=== PATIENT | male | born 1975 | race Caucasian/White ===

== ENCOUNTER 2018-10-31 14:26 | Inpatient (IN) ==
[2018-10-31 15:18] LABS: URINE SOURCE CLEAN CATCH
--- NOTE | 2018-10-31 15:23 | EKG Report ---
Test Performed on : 10/31/2018 3:05:38 PM Test Reason : edema Blood Pressure : / mmHG Vent. Rate : 087 BPM Atrial Rate : 087 BPM P-R Int : 150 ms QRS Dur : 088 ms QT Int : 406 ms P-R-T Axes : 066 074 066 degrees QTc Int : 488 ms Normal sinus rhythm. Prolonged QT Abnormal ECG No previous ECGs available Unconfirmed Result
[2018-10-31 15:26] LABS: BASO# 0.04 X1000 (0.0-0.2); BASO% 0.5 % (0.0-0.8); HEMATOCRIT 34.5 % (42.0-52.0); HEMOGLOBIN 11.9 g/dL (14.0-18.0); IMM GRAN# 0.04 X1000 (0.0-0.04); IMM GRAN% 0.5 % (0.0-0.5); LYMPH# 2.02 X1000 (1.2-3.4); LYMPH% 25.3 % (20.5-51.1); MCH 34.6 PG (27-31); MCHC 34.5 g/dL (33-37); MCV 100.3 FL (81-99); MONO# 0.96 X1000 (0.11-0.59); MPV 11.5 FL (7.4-10.4); NEUT# 4.54 X1000 (1.4-6.5); NEUT% 56.7 % (42.2-75.2); PLT 79 X1000 (130-400); RBC 3.44 XMIL (4.7-6.1); RDW 16.8 % (11.5-14.5)
[2018-10-31 15:28] LABS: BILIRUBIN URINE NEGATIVE (NEGATIVE); BLOOD URINE NEGATIVE (NEGATIVE); COLOR YELLOW; GLUCOSE URINE NEGATIVE (NEGATIVE); KETONE URINE NEGATIVE (NEGATIVE); LEUKOCYTES URINE NEGATIVE (NEGATIVE); NITRITE URINE NEGATIVE (NEGATIVE); PH URINE 5.5; PROTEIN URINE NEGATIVE (NEGATIVE); SP GRAVITY URINE 1.021; TURBIDITY URINE CLEAR (CLEAR); UR EPITHELIAL CELLS <10 /HPF (<10); URINE BACTERIA NEGATIVE /HPF; URINE RBC <10 /HPF (<10); URINE WBC <10 /HPF (<10); UROBILINOGEN URINE 2 mg/dL (NORMAL)
--- NOTE | 2018-10-31 15:36 | Diag Imaging Result Doc PS360 ---
EXAM: CHEST-1 VIEW HISTORY: edema TECHNIQUE: Chest single view COMPARISON: None. FINDINGS: Poor inspiratory effort with basilar atelectasis. The heart is not enlarged. The vessels are not distended. There are no infiltrates. Small right pleural effusion. IMPRESSION: Small right effusion. Electronically signed by Derik Knight 10/31/2018 3:33 PM
--- NOTE | 2018-10-31 15:36 | Diag Imaging Result Doc PS360 ---
CT ABDOMEN/PELVIS W/O CONTRAST - 10/31/2018 INDICATION: distension COMPARISON: None FINDINGS: There is a trace right pleural effusion. There is linear atelectasis in the lung bases. There is moderate ascites. There is severe body wall edema. There is extremely advanced cirrhosis with an atrophic, nodular liver. There is splenomegaly. The spleen measures 15.5 x 5.3 cm. No bowel obstruction or free air. No radiodense renal stones. Bones are intact. IMPRESSION: Severe cirrhosis. Splenomegaly. Moderate ascites. Trace right pleural effusion. Severe body wall edema. This exam was performed using automated exposure control, adjustment of mA or kV according to patient size, and/or use of iterative reconstruction technique Electronically signed by Jaison Bradford 10/31/2018 3:33 PM
[2018-10-31 15:44] LABS: AGAP 8; ALB/GLOB RATIO 0.6; ALBUMIN 2.3 g/dL (3.5-5.0); ALKALINE PHOSPHATASE 199 U/L (32-122); BUN 8 mg/dL (8-22); CALCIUM 7.8 mg/dL (8.8-10.2); CHLORIDE 107 mmol/L (98-107); COSMO 278; CREATININE 0.6 mg/dL (0.7-1.2); ESTIMATED GFR > 60; GLUCOSE 108 mg/dL (70-104); GOT 154 U/L (10-34); GPT 60 U/L (10-44); POTASSIUM 3.7 mmol/L (3.5-5.1); SODIUM 140 mmol/L (136-145); TCO2 25 mmol/L (25-35); TOTAL BILIRUBIN 2.66 mg/dL (0.20-1.00); TOTAL PROTEIN 6.1 g/dL (6.3-8.3)
--- NOTE | 2018-10-31 16:18 | PROVIDER DOCUMENTATION ---
HPI-General Adult - General Chief Complaint: Edema Stated Complaint: WORK RELEASE-FLUID Time Seen by Provider: 10/31/18 14:34 Source: patient Allergies/Adverse Reactions: Patient Allergies Allergy/AdvReac Type Severity Reaction Status Date / Time No Known Allergies Allergy Verified 10/31/18 15:14 Home Medications: Home Medication List Medication Instructions Recorded Confirmed Last Taken Type Amoxicillin/Potassium Clav 1 tab PO BID 10/31/18 10/31/18 10/31/18 History [Augmentin 875-125 Tablet] Furosemide [Lasix] 40 mg PO DAILY 10/31/18 10/31/18 10/31/18 History Potassium Chloride 1 tab PO DAILY 10/31/18 10/31/18 10/30/18 History - History of Present Illness -Gen Adult Nature of Presenting Problems: 43 y/o male with swelling to both lower extremities abdomen and scrotum for 1 month now, getting worse and has been on furosemide and k pill. He developed chest pain, sob about 4 days ago and started on Augmentine. Xray done today at one of the [facility] facilities till reveal pneumonia but his respiratory sxs have resolved Location of Pain/Injury: reports: none, other (edema to the lower extremities , scrotum) Pain Radiation: reports: no radiation Onset/Duration: reports: other (occuring over the past 1 month) Timing: reports: still present Context/Activities at Onset: reports: none Modifying Factors: improves with: nothing Associated Symptoms: reports: chest pain (chest pain sob about 4 days now, started on abx) Review of Systems - Adult - REVIEW OF SYSTEMS - ADULT Constitutional: reports: no symptoms reported Eyes: reports: no symptoms reported Ears, Nose, Mouth & Throat: reports: no symptoms reported Cardiovascular: reports: no symptoms reported Respiratory: reports: no symptoms reported Gastrointestinal: reports: other (abdominal distension) Genitourinary: reports: no symptoms reported Musculoskeletal: reports: no symptoms reported, other (leg swelling) Integumentary: reports: no symptoms reported Neurological: reports: no symptoms reported Psychiatric: reports: no symptoms reported Past History - Adult - PAST MEDICAL HISTORY-ADULT Review of Records: reports: Nursing Assessment Review, Medications Reviewed, Social history reviewed & non-contributory. Cardiovascular: reports: denies history Respiratory: reports: denies history (chest pain, sob improved) Gastrointestinal: reports: denies history Genitourinary: reports: denies history Musculoskeletal: reports: denies history Neurological: reports: denies history Psychiatric: reports: denies history Endocrine/Immune: reports: denies history - SOCIAL HISTORY Smoking: cigarettes Substance Use: denies Alcohol Use Frequency: every day (forof long standing duration) Living Situation: care facility ([facility] facility) Physical Exam-General - PHYSICAL EXAM-ADULT Initial Vital Signs Reviewed: Yes - CONSTITUTIONAL General Appearance: appears well, alert, no apparent distress - EYES Eyes: PERRL/EOMI - HEAD, EARS, NOSE, MOUTH & THROAT HENMT: normocephalic/atraumatic - NECK Neck: non-tender, full range of motion, supple - RESPIRATORY Respiratory: chest non-tender, lungs clear, no respiratory distress - CARDIOVASCULAR Cardiovascular: regular rate, rhythm, other (b/l leg edema) - GASTROINTESTINAL (ABDOMEN) Abdominal Exam: non tender, distended - MUSCULOSKELETAL Extremity: pedal edema - SKIN Integumentary: normal color - PSYCHIATRIC Psych/Mental Status: normal mood/affect, normal thought content, oriented x 3 Progress - PLAN OF CARE/RESULTS Progress/Plan/Lab Results: Vital Signs - 8 hr 10/31/18 14:28 Temperature 98.1 F Pulse Rate 93 H Respiratory Rate 20 Blood Pressure 131/89 O2 Sat by Pulse Oximetry 100 Laboratory Results - last 24 hr 10/31/18 10/31/18 10/31/18 14:55 15:00 15:00 WBC 8.00 RBC 3.44 L Hgb 11.9 L Hct 34.5 L MCV 100.3 H MCH 34.6 H MCHC 34.5 RDW Std Deviation 16.8 H Plt Count 79 L MPV 11.5 H Immature Gran % (Auto) 0.5 Neut % (Auto) 56.7 Lymph % (Auto) 25.3 [place] % (Auto) 12.0 H Eos % (Auto) 5.0 Baso % (Auto) 0.5 Immature Gran # (Auto) 0.04 Neut # (Auto) 4.54 Lymph # (Auto) 2.02 [place] # (Auto) 0.96 H Eos # (Auto) 0.40 Baso # (Auto) 0.04 Sodium 140 Potassium 3.7 Chloride 107 Carbon Dioxide 25 Anion Gap 8 BUN 8 Creatinine 0.6 L Estimated GFR/1.73 m2 > 60 BUN/Creatinine Ratio 13 Glucose 108 H Calculated Osmolality 278 Calcium 7.8 L Total Bilirubin 2.66 H AST 154 H ALT 60 H Alkaline Phosphatase 199 H Troponin T Total Protein 6.1 L Albumin 2.3 L Globulin 3.8 Albumin/Globulin Ratio 0.6 Urine Source CLEAN CATCH Urine Color YELLOW Urine Turbidity CLEAR Urine pH 5.5 Ur Specific [place] 1.021 Urine Protein NEGATIVE Ur Glucose (Stick) NEGATIVE Ur Ketones (Stick) NEGATIVE Urine Blood NEGATIVE Urine Nitrite NEGATIVE Urine Bilirubin NEGATIVE Urobilinogen Dipstick 2 A Urine Leukocytes NEGATIVE Urine WBC (Auto) <10 Urine RBC (Auto) <10 U Epithel Cells (Auto) <10 Urine Bacteria (Auto) NEGATIVE 10/31/18 15:00 WBC RBC Hgb Hct MCV MCH MCHC RDW Std Deviation Plt Count MPV Immature Gran % (Auto) Neut % (Auto) Lymph % (Auto) [place] % (Auto) Eos % (Auto) Baso % (Auto) Immature Gran # (Auto) Neut # (Auto) Lymph # (Auto) [place] # (Auto) Eos # (Auto) Baso # (Auto) Sodium Potassium Chloride Carbon Dioxide Anion Gap BUN Creatinine Estimated GFR/1.73 m2 BUN/Creatinine Ratio Glucose Calculated Osmolality Calcium Total Bilirubin AST ALT Alkaline Phosphatase Troponin T < 0.010 Total Protein Albumin Globulin Albumin/Globulin Ratio Urine Source Urine Color Urine Turbidity Urine pH Ur Specific [place] Urine Protein Ur Glucose (Stick) Ur Ketones (Stick) Urine Blood Urine Nitrite Urine Bilirubin Urobilinogen Dipstick Urine Leukocytes Urine WBC (Auto) Urine RBC (Auto) U Epithel Cells (Auto) Urine Bacteria (Auto) Orders Category Date Time Status Nursing- Obtain EKG ONCE Care 10/31/18 14:45 Active CHEST-1 VIEW [RAD] Stat Exams 10/31/18 14:[address] ABDOMEN/PELVIS W/O CONTRAST [CT] Stat Exams 10/31/18 14:45 Completed CBC WITH ELECTRONIC DIFF [HEME] Stat Lab 10/31/18 15:00 Completed COMPREHENSIVE METABOLIC PANEL [CHEM] Stat Lab 10/31/18 15:00 Completed PRO B-NATRIURETIC PEPTIDE Stat Lab 10/31/18 15:00 Received TROPONIN T Stat Lab 10/31/18 15:00 Completed URINALYSIS W/POSS RFLX CULT [URINALYSIS] Stat Lab 10/31/18 14:55 Completed EKG [EKG] Stat Ther 10/31/18 14:45 Draft Result Diagrams: 10/31/18 15:00 10/31/18 15:00 - XRAY 1 XRAY Study: Chest (Department of Imaging Patient: SONYA BUTTSADM Date: 10/31/18MR#: [id number] : 1975ADM Status: PRE ERAcct#: [id number] Age/Sex: 43/MRoom/Bed: Loc: ED Ordering Physician: Gino Shultz MD Family Physician: None,PCP Reason for Procedure: edema Signed EXAM: CHEST-1 VIEW HISTORY: edema TECHNIQUE: Chest single view COMPARISON: None. FINDINGS: Poor inspiratory effort with basilar atelectasis. The heart is not enlarged. The vessels are not distended. There are no infiltrates. Small right pleural effusion. IMPRESSION: Small right effusion. Electronically signed by Derik Knight 10/31/2018 3:33 PM 10/31/18 1533 Interpreting Physician: Derik Knight MD Dictated Date/Time: 10/31/18 1533 cc: Gino Shultz MD; None,PCP) - CT/MRI 1 CT Study: Abdomen ( Patient: SONYA BUTTSADM Date: 10/31/18MR#: [id number] : 1975ADM Status: PRE ERAcct#: [id number] Age/Sex: 43/MRoom/Bed: Loc: ED Ordering Physician: Gino Shultz MD Family Physician: None,PCP Reason for Procedure: distension Signed CT ABDOMEN/PELVIS W/O CONTRAST - 10/31/2018 INDICATION: distension COMPARISON: None FINDINGS: There is a trace right pleural effusion. There is linear atelectasis in the lung bases. There is moderate a scites. There is severe body wall edema. There is extremely advanced cirrhosis with an atrophic, nodular liver. There is splenomegaly. The spleen measures 15.5 x 5.3 cm. No bowel obstruction or free air. No radiodense renal stones. Bones are intact. IMPRESSION: Severe cirrhosis. Splenomegaly. Moderate ascites. Trace right pleural effusion. Severe body wall edema. This exam was performed using automated exposure control, adjustment of mA or kV according to patient size, and/or use of iterative reconstruction technique Electronically signed by Jaison Bradford 10/31/2018 3:33 PM 10/31/18 1533 Interpreting Physician: Jaison Bradford MD Dictated Date/Time: 10/31/18 1531 cc: Gino Shultz MD; None,PCP) - CONSULTS/PCP/HOSPITALIST Notification #1 *Consult/PCP/Hospitalist*: Patient admission accepted by [facility] Consult Disposition: Admit (to be admitted to Dr Valle) Departure - Departure Date of Disposition Decision: 10/31/18 Time of Disposition Decision: 18:30 DIAGNOSIS: Splenomegaly Liver cirrhosis Qualifiers: Hepatic cirrhosis type: alcoholic cirrhosis Ascites presence: with ascites Qualified Code(s): K70.31 - Alcoholic cirrhosis of liver with ascites Edema Qualifiers: Edema type: localized Qualified Code(s): R60.0 - Localized edema Pneumonia Qualifiers: Pneumonia type: due to unspecified organism Laterality: unspecified laterality Lung location: lower lobe of lung Qualified Code(s): J18.1 - Lobar pneumonia, unspecified organism Disposition: ADMITTED INPATIENT 09 Certified Medical Emergency: Emergent Condition: Fair - Critical Care Note This patient required my direct & personal management of CC.: No Attestation - Physician/ CHRISTINE Attestation Patient care was provided by Advanced Practice Provider:: No The physician spent face to face time with patient:: Yes Advanced Practice Provider documentation review:: Supervising physician onsite and consulted in the evaluation and care of this patient. The physician did have a face to face encounter with the patient.
[2018-10-31] MEDS ORDERED: ZOFRAN IV PRN (18:43)
[2018-10-31] MEDS ORDERED: TYLENOL PO PRN (18:43)
--- NOTE | 2018-10-31 19:07 | HISTORY AND PHYSICAL ---
This is a 43-year-old brought in I think from long term. He has had some swelling which started a couple days ago mainly in his abdomen, noticed some in his scrotum, before that he noticed some swelling in his lower extremities. He denies any fever or chills. Denies any rash. Did not notice any jaundice color. He has not really felt much different. PAST MEDICAL HISTORY: Is pretty unremarkable. He has had many years of hard drinking which he admits to, has been in jail now for a good 10 months and he still smokes and I think he has had 1 joint since he had been there by his admission. SURGICAL HISTORY: Had his adenoids taken out when he was a boy otherwise occasional sutures but nothing else. FAMILY HISTORY: Mother with colon cancer. Father was killed when he was just 6 months old, his step dad unremarkable. SOCIAL HISTORY: He is on work release right now but for years drank about a 5th of whiskey and 1 case of beer almost every day. Smokes between 3 to 5 packs of cigarettes every day. REVIEW OF SYSTEMS: General: He does not report any weight gain or loss, no fever, chills. HEENT: Unremarkable. Respiratory: No increased work of breathing or dyspnea. Cardiovascular: No chest pain or tachy palpitation. GI/: Unremarkable. Musculoskeletal/Neurologic: No significant complaints. Not on any medication. PHYSICAL EXAM: Today temperature 98.1 degrees, pulse 90, respirations 20, blood pressure 131/89. Pupils are equal, round. LUNGS: Clear in all lung flower. CARDIOVASCULAR: Regular rhythm and rate without murmur or S3. ABDOMEN: Soft. SKIN: Warm and dry. ABDOMEN: Is slightly distended, is nontender and it is difficult to appreciate whether it is true ascites there or night. He has 1+ to 2+ edema right at the ankle up to the midshin. Scrotum has some mild swelling. No rash. Conjunctiva are pink. Sclerae clear. No oral nasal mucosa lesions. NECK: Supple. No cervical or supraclavicular adenopathy. LAB: White count 8000, hematocrit 34, hemoglobin 11.9, platelet count 79,000. Sodium 140, potassium 3.7, chloride 107, BUN 8, creatinine 0.6, blood sugar 108, AST 154, ALT is 60, alkaline phosphatase is 199, albumin 2.3. Urinalysis unremarkable. Abdominal and pelvic CT scan severe cirrhosis, splenomegaly, moderate ascites, trace right pleural effusion, severe body wall edema. Chest x-ray with small right pleural effusion. ASSESSMENT/PLAN: 1. Anasarca, appears to be severe hepatic cirrhosis. Do not get a history to suggest hepatitis. I think we will check hepatitis profile, HIV. We will try and diurese some fluid off with Lasix and Aldactone, follow his electrolytes carefully and his renal function. 2. Looks like hepatitis with elevation of AST and ALT, AST is 154, ALT is 60, total bilirubin is mild elevation 266, calcium 7.8, albumin was 2.3. We need to probably check his pro time see how hepatic function is doing as well, will check a thyroid, B12, folate. cc: Yuriy Valle MD
[2018-10-31] MEDS: LASIX IV SCH (21:47)
[2018-10-31] MEDS: ALDACTONE PO SCH (21:48)
[2018-11-01 06:20] LABS: BASO# 0.04 X1000 (0.0-0.2); BASO% 0.6 % (0.0-0.8); EOS# 0.48 X1000 (0.0-0.7); EOS% 6.9 % (0.0-10.0); HEMATOCRIT 32.1 % (42.0-52.0); HEMOGLOBIN 11.2 g/dL (14.0-18.0); LYMPH# 2.11 X1000 (1.2-3.4); LYMPH% 30.4 % (20.5-51.1); MCH 34.9 PG (27-31); MCHC 34.9 g/dL (33-37); MONO# 0.88 X1000 (0.11-0.59); MONO% 12.7 % (1.7-9.3); MPV 11.3 FL (7.4-10.4); NEUT# 3.43 X1000 (1.4-6.5); NEUT% 49.4 % (42.2-75.2); PLT 68 X1000 (130-400); RBC 3.21 XMIL (4.7-6.1); RDW 16.8 % (11.5-14.5); WBC 6.94 X1000 (4.8-10.8)
[2018-11-01 06:25] LABS: INR 2.7; PROTIME 29.4 Seconds (11.0-16.0); PTT 52.5 Seconds (22.3-41.8)
[2018-11-01 06:30] LABS: AGAP 8; ALB/GLOB RATIO 0.5; ALBUMIN 1.8 g/dL (3.5-5.0); ALKALINE PHOSPHATASE 174 U/L (32-122); BUN 7 mg/dL (8-22); CALCIUM 7.4 mg/dL (8.8-10.2); CHLORIDE 110 mmol/L (98-107); COSMO 278; CREATININE 0.5 mg/dL (0.7-1.2); ESTIMATED GFR > 60; GLUCOSE 84 mg/dL (70-104); GOT 140 U/L (10-34); GPT 53 U/L (10-44); POTASSIUM 3.4 mmol/L (3.5-5.1); SODIUM 141 mmol/L (136-145); TCO2 23 mmol/L (25-35); TOTAL BILIRUBIN 2.47 mg/dL (0.20-1.00); TOTAL PROTEIN 5.3 g/dL (6.3-8.3)
[2018-11-01 06:48] LABS: FREE T4 1.2 ng/dL (0.93-1.70); TSH 3.19 uIUmL (0.27-4.20)
[2018-11-01] MEDS: KLOR-CON PO SCH (08:53)
[2018-11-01] MEDS: M.V.I.-12 10 ML, FOLIC ACID 1 MG, MAGNESIUM SULFATE 1 GM, THIAMINE 100 MG in NS 1,000 ML IV SCH (08:53)
[2018-11-01] MEDS: LASIX IV SCH (08:53)
[2018-11-01] MEDS: ALDACTONE PO SCH (08:53)
--- NOTE | 2018-11-01 13:39 | PROGRESS NOTE ---
DATE: 11/01/2018 SUBJECTIVE: Mr. Hobbs says he is feeling a little better. Abdomen a little less tight. OBJECTIVE: Vital Signs: Temperature 97.6 degrees, pulse 77, respirations 16, blood pressure 116/77. Eyes: Pupils are equal and round. Lungs: Clear in all lung flower. Cardiovascular exam: Regular rhythm and rate without murmur or S3. Abdomen: Soft. Skin: Skin is warm and dry. LABORATORY DATA: Review of his lab: Mild elevation of the transaminases. ASSESSMENT AND PLAN: 1. Anasarca. 2. Severe hepatic cirrhosis suggesting possible hepatitis. So, lab is pending. Continue his Lasix and Aldactone. Will see what Dr. Rodas says. cc: Yuriy Valle MD
--- NOTE | 2018-11-01 20:09 | GASTROENTEROLOGY CONSULTATION ---
DATE: 11/01/2018 REASON FOR CONSULTATION: Findings of cirrhosis of the liver, ascites. HISTORY OF PRESENT ILLNESS: This is a 43-year-old male. He comes in for evaluation from [facility]. Patient states he has been in this program for about 6 months, I believe. He has noticed some lower extremity swelling over the last month. He has had some evaluation and was started on diuretics with no real improvement. He has reported abdominal swelling and scrotal swelling worsening over the last week. He has reported some shortness of breath. He had had some chest pain. Apparently he was started on antibiotics as an outpatient for possible pneumonia. Patient does report a diagnosis of hepatitis C diagnosed from the work release program. He states he has not been treated for hepatitis C. He is not sure how long he has had hepatitis. He does have a history of IV drug use. He has multiple tattoos. He reports a history of alcohol abuse. He has denied jaundice of the skin or eyes. He does report abdominal pain worse on the left upper quadrant area. PAST MEDICAL HISTORY: None significant except for newly diagnosed cirrhosis of the liver, alcohol abuse, history of IV drug use, tobacco use. PAST SURGICAL HISTORY: Adenoid removal. ALLERGIES: No known drug allergies. HOME MEDICATIONS: Augmentin twice daily, Lasix 40 mg daily, potassium 1 tablet daily. SOCIAL HISTORY: He currently is in [facility], history of alcohol abuse, history of IV drug use. Patient states he has been clean for 2 years. Positive for tobacco use. FAMILY HISTORY: Mother had colon cancer. Father was killed when patient was 6 months old. REVIEW OF SYSTEMS: Per history of present illness. PHYSICAL EXAMINATION: Vital Signs: Temperature 97.6 degrees, pulse 77, respirations 16, blood pressure 116/77. General: The patient is awake and alert in no acute distress. HEENT: Normocephalic, atraumatic. Pupils equal, round, reactive to light. Sclerae nonicteric. Cardiovascular: Regular rate and rhythm. Respiratory: Lung sounds essentially clear bilaterally. Abdomen: With ascites noted, distention, positive bowel sounds, tenderness left upper quadrant. Extremities: Bilateral lower extremities with edema noted. Neurological: Cranial nerves 2 through 12 grossly intact. Patient is awake, alert and oriented to person, place, and time. DIAGNOSTIC RESULTS: Laboratory: Hematology: WBC 6.94, hemoglobin 11.2, hematocrit 32.1, MCV 100.0, platelets 68,000. Coagulation: Protime 29.4, INR 2.70, PTT 52.5. Chemistry: Sodium 141, potassium 3.4, chloride 110, CO2 23, BUN 7, creatinine 0.5, glucose 84, calcium 7.4, total bilirubin 2.47, AST 140, ALT 53, alkaline phosphatase 174, ammonia 43. Troponin less than 0.010, total protein 5.3, albumin 1.8. Vitamin B12 1321, folate 11.1, TSH 3.19, free T4 1.20. Urinalysis was normal. Imaging studies: Abdominal pelvis CT scan showing severe cirrhosis, splenomegaly, moderate ascites, trace right pleural effusion, severe body wall edema. ASSESSMENT AND PLAN: 1. Cirrhosis of the liver with evidence of decompensation. 2. Ascites/anasarca. 3. Splenomegaly. 4. History of alcohol abuse. 5. Reported diagnosis of hepatitis C, hepatitis profile is pending. We will proceed with workup for newly diagnosed cirrhosis of the liver including abdominal ultrasound paracentesis for diagnostic and therapeutic purposes. Fluid analysis orders have been placed. We are waiting on hepatitis profile results. We will get other labs to check for autoimmune hepatitis. Would recommend 2 g sodium diet and dietary consultation for help with dietary recommendations and education on 2 g sodium diet. Would change his Lasix to 40 mg p.o. daily and Aldactone 50 mg p.o. daily. Further plans will be made as needed. I have discussed this case with Dr. Rodas. Thank you for this consultation. Dictated by ANUSHA Shah for Zak Rodas MD cc: ANUSHA Worthington MD
[2018-11-02 07:12] LABS: INR 2.4; PROTIME 26.8 Seconds (11.0-16.0)
[2018-11-02 07:17] LABS: BASO# 0.02 X1000 (0.0-0.2); BASO% 0.3 % (0.0-0.8); EOS% 7.2 % (0.0-10.0); HEMATOCRIT 33.3 % (42.0-52.0); HEMOGLOBIN 11.6 g/dL (14.0-18.0); IMM GRAN# 0.02 X1000 (0.0-0.04); IMM GRAN% 0.3 % (0.0-0.5); LYMPH% 30.2 % (20.5-51.1); MCH 34.8 PG (27-31); MCHC 34.8 g/dL (33-37); MONO# 0.71 X1000 (0.11-0.59); MONO% 10.2 % (1.7-9.3); MPV 10.9 FL (7.4-10.4); NEUT% 51.8 % (42.2-75.2); PLT 70 X1000 (130-400); RBC 3.33 XMIL (4.7-6.1); RDW 16.7 % (11.5-14.5); WBC 6.95 X1000 (4.8-10.8)
[2018-11-02 07:24] LABS: AGAP 6; ALB/GLOB RATIO 0.5; ALBUMIN 1.9 g/dL (3.5-5.0); ALKALINE PHOSPHATASE 191 U/L (32-122); BUN 8 mg/dL (8-22); CALCIUM 7.4 mg/dL (8.8-10.2); CHLORIDE 108 mmol/L (98-107); COSMO 268; CREATININE 0.5 mg/dL (0.7-1.2); ESTIMATED GFR > 60; GLUCOSE 84 mg/dL (70-104); GOT 175 U/L (10-34); GPT 65 U/L (10-44); POTASSIUM 3.4 mmol/L (3.5-5.1); SODIUM 135 mmol/L (136-145); TCO2 21 mmol/L (25-35); TOTAL PROTEIN 5.9 g/dL (6.3-8.3)
[2018-11-02 08:08] LABS: TOTAL IRON 123 ug/dL (53-167)
[2018-11-02 08:12] LABS: UNBOUND IRON 3 ug/dL (112-346)
[2018-11-02 08:13] LABS: IRON SATURATION 97 %; TIBC 126 ug/dL
--- NOTE | 2018-11-02 09:49 | Diag Imaging Result Doc PS360 ---
EXAM: US ABD PARACENTESIS W S/I 11/02/2018 HISTORY: ascites, cirrhosis TECHNIQUE: Ultrasound-guided paracentesis COMMENT: The risks and benefits of the procedure including the possibility of bleeding, infection, puncture of hollow viscus, or reaction to lidocaine was discussed with the patient and he agreed to the procedure. Following sterile preparation the skin anterolaterally over the right upper quadrant and administration 1% lidocaine to the skin and deeper soft tissues, the paracentesis catheter was placed in the right subphrenic space and 1.1 L of straw-colored fluid was drained. This was sent to the laboratory in its entirety. IMPRESSION: Successful ultrasound-guided paracentesis. Electronically signed by Elian Ling 11/02/2018 9:47 AM
[2018-11-02] MEDS: M.V.I.-12 10 ML, FOLIC ACID 1 MG, MAGNESIUM SULFATE 1 GM, THIAMINE 100 MG in NS 1,000 ML IV SCH (10:16)
[2018-11-02] MEDS: ALDACTONE PO SCH (10:17)
[2018-11-02] MEDS: KLOR-CON PO SCH (10:17)
[2018-11-02] MEDS: LASIX PO SCH (10:17)
[2018-11-02 12:04] LABS: BODY FLUID SOURCE PERITONEAL FLUID; MONOS 80 %; POLYS 20 %; WBC BF 336 /cumm
[2018-11-02 12:06] LABS: TOTAL PROT BODY FLUID 0.5 g/dL
[2018-11-02 12:17] LABS: ALBUMIN BODY FLUID < 0.2 g/dL; AMYLASE BODY FLUID 84 U/L
[2018-11-02 12:40] LABS: HEPATITIS PROFILE ACUTE SEE COMMENTS
[2018-11-02 13:04] LABS: GLUCOSE BODY FLUID 94 mg/dL
--- NOTE | 2018-11-02 17:31 | PROGRESS NOTE ---
DATE: 11/02/2018 SUBJECTIVE: This patient is feeling a little bit better today. His abdomen is still distended. A paracentesis has been performed and 1.1 L of straw-colored fluid has been removed and sent to the laboratory. He does have positive hepatitis C and hepatitis B and history of alcohol abuse. He is coagulopathic due to liver damage. OBJECTIVE: Vital Signs: Temperature 98.3 degrees, pulse 93, respiratory rate 18, blood pressure 112/75, oxygen saturation 92 on room air. HEENT: Head normocephalic. No trauma. PERRLA. His sclera is a little bit icteric. Neck: Supple. No JVD. Central trachea. Chest: Clear to auscultation. Some crepitus at the bases. Abdomen: Soft, distended. Painful to palpation. Decreased bowel sounds but present. Ascites. Extremities: There is 3+ lower extremity edema up to the abdominal wall. No clubbing. No cyanosis. Neurological: The patient is alert. He is oriented x3. No focal neurological deficits. LABORATORY: WBC 6.9, hemoglobin 11.6, hematocrit 33.3, platelets 70,000. PT 26.8, INR 2.4. Sodium 135, potassium 3.4, chloride 108, bicarbonate 21, BUN 8, creatinine 0.5, glucose 84, calcium 7.4. Total bilirubin 2.6, AST 175, ALT 65, alkaline phosphatase 191, albumin 1.9. ASSESSMENT AND PLAN: 1. Liver cirrhosis with evidence of decompensation. This patient has been placed on diuretics. We did an abdominal paracenteses and 1.1 L of fluid has been removed and sent to the laboratory. Gastroenterology Department is following this patient closely. He is feeling a little bit better. 2. Ascites/anasarca, again due to liver failure, liver cirrhosis. Will continue with the same management. 3. Splenomegaly. 4. Hepatitis C and hepatitis B. Followed by Gastroenterology Department. We will continue monitoring this patient. I will continue following the recommendations of GI. 5. History of alcohol abuse. Apparently, he stopped drinking 6 months ago. This patient has been highly advised against alcohol use. I will continue with daily cessation education. 6. Coagulopathy, secondary to liver dysfunction. Aware. cc: Julio George MD
[2018-11-03 06:48] LABS: HEMATOCRIT 34.7 % (42.0-52.0); HEMOGLOBIN 11.8 g/dL (14.0-18.0); MCH 34.5 PG (27-31); MCV 101.5 FL (81-99); MPV 11.3 FL (7.4-10.4); PLT 75 X1000 (130-400); RBC 3.42 XMIL (4.7-6.1); RDW 16.8 % (11.5-14.5); WBC 7.16 X1000 (4.8-10.8)
[2018-11-03 06:49] LABS: BASO# 0.04 X1000 (0.0-0.2); BASO% 0.6 % (0.0-0.8); EOS# 0.51 X1000 (0.0-0.7); EOS% 7.1 % (0.0-10.0); LYMPH% 32.1 % (20.5-51.1); MONO# 0.83 X1000 (0.11-0.59); MONO% 11.6 % (1.7-9.3); NEUT# 3.48 X1000 (1.4-6.5); NEUT% 48.6 % (42.2-75.2)
[2018-11-03 07:12] LABS: AGAP 6; ALB/GLOB RATIO 0.4; ALBUMIN 1.8 g/dL (3.5-5.0); ALKALINE PHOSPHATASE 188 U/L (32-122); BUN 7 mg/dL (8-22); CALCIUM 7.4 mg/dL (8.8-10.2); CHLORIDE 111 mmol/L (98-107); COSMO 275; CREATININE 0.5 mg/dL (0.7-1.2); ESTIMATED GFR > 60; GLUCOSE 82 mg/dL (70-104); GOT 187 U/L (10-34); GPT 75 U/L (10-44); POTASSIUM 3.7 mmol/L (3.5-5.1); SODIUM 139 mmol/L (136-145); TCO2 22 mmol/L (25-35); TOTAL BILIRUBIN 2.48 mg/dL (0.20-1.00)
[2018-11-03 07:30] VITALS: BP 107/70
[2018-11-03] MEDS: M.V.I.-12 10 ML, FOLIC ACID 1 MG, MAGNESIUM SULFATE 1 GM, THIAMINE 100 MG in NS 1,000 ML IV SCH (09:16)
[2018-11-03] MEDS: KLOR-CON PO SCH (09:16)
[2018-11-03] MEDS: ALDACTONE PO SCH (09:16)
[2018-11-03] MEDS: LASIX PO SCH (09:16)
[2018-11-03 12:53] LABS: HCV BY PCR SEE COMMENTS
--- NOTE | 2018-11-03 13:50 | GASTROENTEROLOGY PROGRESS NOTE ---
DATE: 11/03/2018 SUBJECTIVE: Patient was lying in bed in no acute distress. I believe he has orders to be discharged today back to [facility]. Patient's hepatitis profile showed positive for hepatitis B and hepatitis C. OBJECTIVE: Vital Signs: Temperature 98.5 degrees, pulse 88, respirations 19, blood pressure 107/70. General: Patient is awake, alert, no acute distress. LABORATORY: Hematology: WBC 7.16, hemoglobin 11.8, hematocrit 34.7, MCV 101.5, platelets 75,000. Coagulation: Pro-time 26.8, INR 2.40. Chemistry: Sodium 139, potassium 3.7, chloride 111, CO2 of 22, BUN 7, creatinine 0.5, glucose 82, calcium 7.4. Total bilirubin 2.48, AST 187, ALT 75, alkaline phosphatase 188. ASSESSMENT AND PLAN: 1. Cirrhosis of the liver with evidence of decompensation. Continue on current diuretics and management. 2. Ascites/anasarca. Again continue on diuretics. 3. Hepatitis B and hepatitis C. Patient will need treatment and further evaluation. He is currently under [facility] program. They do have a protocol for treatment for hepatitis. I will try and contact the nurse through [facility]. I have given patient our contact information to follow up in the office depending on the current protocol for his diagnosis through the [facility] program. I have discussed this case with Dr. Rodas. Dictated by ANUSHA Shah for Zak Rodas MD cc: ANUSHA Worthington MD [facility]
--- NOTE | 2018-11-03 20:15 | DISCHARGE SUMMARY ---
ADMISSION DATE: 10/31/2018 DISCHARGE DATE: 11/03/2018 PRIMARY CARE PHYSICIAN: None. ADMISSION DIAGNOSES: 1. Anasarca. Appears to be severe hepatic cirrhosis. 2. Looks like hepatitis with elevation of AST and ALT, and total bilirubin was elevated as well. DISCHARGE DIAGNOSES: 1. Liver cirrhosis with evidence of decompensation. 2. Ascites/anasarca again due to liver failure, liver cirrhosis. 3. Splenomegaly. 4. Hepatitis C and hepatitis B. 5. History of alcohol abuse. 6. Coagulopathy secondary to liver dysfunction. SUMMARY OF FINDINGS: This is a 43-year-old male who was brought in from a work release. He stated that he had been having some swelling for a couple days in his abdomen and scrotum and to his lower extremities. He did not notice any jaundice. He states he has had a heavy history of drinking. His AST and ALT were elevated on admission at 154 and 60. His total bilirubin had mild elevation at 2.47. He was admitted. We consulted GI. We did a paracentesis- guided ultrasound and removed 1.1 L of straw-colored fluid drained and sent to laboratory. He was placed on diuretics. They are going to contact the nurse at the [facility] work release to discuss the treatment for his hepatitis B and hepatitis C. It is now felt that he can safely be discharged back to the work release. DISCHARGE INSTRUCTIONS: Discharge medications will include Lasix 40 mg p.o. daily and spironolactone 50 mg p.o. daily. Again, treatment for his hepatitis B and C will be provided by the work release nurse. He is to follow up with Dr. Rodas from in 2 to 3 weeks. He is to be on a low-salt diet and limit the amount of fluid as discussed. All discharge instructions were reviewed with the patient and he verbalized understanding. TIME SPENT: A 35-minute discharge. Dictated by ANUSHA Casillas for Julio George MD cc: ANUSHA Casillas MD [facility]
== END 2018-11-03 11:39 | DRG 432 ==
LOC: ED 14:26 → 3N 19:48 → SUATTDRO 19:48
PROVIDERS: ATTEND Internal Medicine